=== PATIENT | female | born 1985 | race Caucasian/White ===

== ENCOUNTER 2016-06-26 21:18 | Emergency (ER) | payer OTHER ==
[~2016-06-26] VITALS: Ht 167.6 cm; Wt 95.3 kg
[2016-06-26] MEDS ORDERED: ACETAMINOPHEN 325 MG TAB PO ONE (21:45)
[2016-06-26] MEDS ORDERED: LASI40TA PO (21:58)
[2016-06-26] MEDS ORDERED: HYDR12.55 PO (21:58)
[2016-06-26] MEDS ORDERED: ACYC1CAP8 PO (21:58)
[2016-06-26] MEDS ORDERED: METO25TA74 PO (21:58)
[2016-06-26] MEDS ORDERED: WELLTAB38 PO (21:58)
[2016-06-26 23:08] LABS: MEAN CORPUSCULAR HEMOGLOBIN 30.3 pg (27.0-33.0); MEAN CORPUSCULAR HGB CONC 34.2 g/dl (32.0-36.5); MEAN CORPUSCULAR VOLUME 88.5 fl (80.0-96.0); RED CELL DISTRIBUTION WIDTH 13.8 % (11.5-14.5); WHITE BLOOD COUNT 10.8 K/mm3 (4.0-10.0)
[2016-06-26] MEDS ORDERED: ISOVUE-370 76% 100ML VIAL (Q9967) As Ordered ONE (23:10)
[2016-06-26 23:23] LABS: CONTROL LINE HCG INT CTR LINE PRESENT
--- NOTE | 2016-06-26 23:30 | REPUSA ---
CT of the head Clinical history: Pituitary tumor. Technique: Multiple axial CT images were obtained through the head before and after administration of contrast. Comparison: None. Findings: The ventricles and sulci are symmetric bilaterally. There is no evidence of acute hemorrhag e or infarct. There is no midline shift, mass effect, or extra-axial fluid collection. The osseous st ructures are unremarkable. The visualized paranasal sinuses and mastoid air cells are clear. There ar e no abnormal enhancing mass is appreciated. Impression: Negative study. If there is continued clinical concern, MRI could be considered.
[2016-06-26 23:35] LABS: METHADONE URINE NEGATIVE (NEGATIVE)
[2016-06-26 23:40] LABS: ALBUMIN 4.2 GM/DL (3.2-5.2); ALBUMIN/GLOBULIN RATIO 1.24 (1.00-1.93); ALKALINE PHOSPHATASE 95 U/L (45-117); ALT/SGPT 52 U/L (12-78); ANION GAP 9 MEQ/L (8-16); AST/SGOT 29 U/L (15-37); BILIRUBIN,DIRECT 0.2 MG/DL (0.0-0.2); BILIRUBIN,TOTAL 0.6 MG/DL (0.2-1.0); BLOOD UREA NITROGEN 12 MG/DL (7-18); CALCIUM LEVEL 9.5 MG/DL (8.5-10.1); CARBON DIOXIDE LEVEL 27 MEQ/L (21-32); CHLORIDE LEVEL 105 MEQ/L (98-107); CREATININE FOR GFR 1.06 MG/DL (0.55-1.02); GLOMERULAR FILTRATION RATE > 60.0 (>60); GLUCOSE, FASTING 94 MG/DL (70-105); POTASSIUM SERUM 3.7 MEQ/L (3.5-5.1); SODIUM LEVEL 141 MEQ/L (136-145); TOTAL PROTEIN 7.6 GM/DL (6.4-8.2)
--- NOTE | 2016-06-27 06:50 | ECGEPIP ---
Stationary ECG Study [facility] - ED Test Date: 2016-06-27 Pat Name: DONALD AHUMADA Department: Room: - Gender: F Head Swamper: : 1985 Requested By: VERONIQUE White Order Number: [id number] Reading MD: Jose Nieves Measurements Intervals [place] Rate: 78 P: 37 UT: 132 QRS: 43 QRSD: 89 T: 35 QT: 367 QTc: 418 Interpretive Statements SINUS RHYTHM NO PRIOR Electronically Signed On 06-27-2016 6:49:44 EDT by Jose Nieves
[2016-06-27] MEDS ORDERED: ACETAMINOPHEN 325 MG TAB PO ONE (07:15)
[2016-06-27 07:50] VITALS: BP 143/90
== END 2016-06-27 07:51 ==
LOC: M ED 23:17
DX: R45.851 Suicidal ideations (principal); I10 Essential (primary) hypertension; J45.909 Unspecified asthma, uncomplicated; E78.5 Hyperlipidemia, unspecified; R56.9 Unspecified convulsions; E23.7 Disorder of pituitary gland, unspecified; Z79.899 Other long term (current) drug therapy; F17.210 Nicotine dependence, cigarettes, uncomplicated